=== PATIENT | female | born 1980 | race Caucasian/White ===

== ENCOUNTER 2019-06-06 20:04 | Emergency (ER) | payer BC ==
[2019-06-06 20:35] VITALS: BP 110/78
--- NOTE | 2019-06-06 21:09 | UC ---
FLU HPI - HPI Summary HPI Summary: 38-year-old female presenting with nasal congestion, productive cough, persistent fever, and decreased appetite 10 days. Patient states her fever has been as high as 103 but has not gone down below 100. CT is taking ibuprofen and Tylenol [id number]. Notes that the past several days she has developed increasing sinus pressure and "feels like her left sinus crackles when she moves." States the pressure in her head is "getting unbearable." States she now has also had to use her inhaler throughout the day for shortness of breath that she normally only uses while exercising. States she is trying to stay hydrated. Denies nausea and vomiting. Also taking otc decongestants and using flonase without any relief. - History of Current Complaint Chief Complaint: UCGeneralIllness Stated Complaint: SINUS CONGESTION Hx Obtained From: Patient Hx Last Menstrual Period: 06/02/19 Pain Intensity: 6 Pain Scale Used: 0-10 Numeric - Allergy/Home Medications Allergies/Adverse Reactions: Allergies Allergy/AdvReac Type Severity Reaction Status Date / Time No Known Allergies Allergy Verified 06/06/19 20:35 Home Medications: Home Medications Acetaminophen [Tylenol Extra Strength] 500 mg PO DAILY 06/06/19 [History Confirmed 06/06/19] Albuterol HFA INHALER* [Ventolin HFA Inhaler*] 2 puff INH Q6H PRN 06/06/19 [ History Confirmed 06/06/19] Amoxicillin/Clavulanate TAB* [Augmentin TAB 875*] 875 mg PO BID #13 tab [Rx] PMH/Surg Hx/FS Hx/Imm Hx Respiratory History: Asthma - exercise-induced - Surgical History Surgical History: Yes Surgery Procedure, Year, and Place: tonsils. triple hernia surgery. 2 knee surgeries - Family History Known Family History: Positive: Non-Contributory - Social History Alcohol Use: Rare Substance Use Type: None Smoking Status (MU): Never Smoked Tobacco Review of Systems All Other Systems Reviewed And Are Negative: Yes Constitutional: Positive: Fever, Chills, Fatigue ENT: Positive: Nasal Discharge, Sinus Congestion, Sinus Pain/Tenderness Respiratory: Positive: Shortness Of Breath, Cough - productive Cardiovascular: Positive: Negative Gastrointestinal: Positive: Negative Musculoskeletal: Positive: Negative Neurological/Mental Status: Positive: Headache Physical Exam - Summary Physical Exam Summary: Vital Signs Reviewed: Yes A+Ox3, no distress, ill-appearing Eyes: b/l inflamed conjunctiva ENT: Hearing grossly normal, TM x 2 clear, +nasal congestion, +PND, +maxillary and frontal sinus tenderness worse on left, moist, uvula midline, no exudate, + pharyngeal erythema Neck: Positive: Supple Respiratory: Positive: No respiratory distress, No accessory muscle use +faint diffuse wheezing Cardiovascular: RRR nl s1, s2 no m/r Musculoskeletal Exam: RAMÍREZ x 4 without difficulty Neurological: Positive: Alert Psychological: Positive: age appropriate behavior Skin: Positive: no rash, no ecchymosis Vital Signs: Initial Vital Signs Temp 100.2 F 06/06/19 20:31 Pulse 98 06/06/19 20:31 Resp 16 06/06/19 20:31 BP 110/78 06/06/19 20:31 Pulse Ox 100 06/06/19 20:31 Lab Results 06/06/19 Range/Units 21:23 Influenza B (Rapid) Positive H (Negative) Diagnostics - Radiology CXR Radiology Interpretation Completed By: ED Physician Summary of Radiographic Findings: no acute process Flu Course/Dx - Course Course Of Treatment: Discussed initial negative read of CXR and informed her that the final report is obtained in the morning and should would be notified with any abnormalities. Positive rapid flu B. I treated patient with augmentin for acute sinusitis likely secondary to influenza. She received the first dose here. I instructed to continue with symptomatic treatment, including flonase, decongestant, and otc antipyretics/analgesics. Instructed to follow up with pcp if not improving within 5-7 days. Instructed to go to ED with any new or worsening symptoms. Patient voiced understanding and agreed with treatment plan. - Differential Dx/Diagnosis Differential Diagnosis/HQI/PQRI: Bronchitis, Influenza, Pneumonia, Upper Respiratory Infection Provider Diagnosis: Influenza B, Acute sinusitis, Fever, Sinus headache Discharge ED - Sign-Out/Discharge Documenting (check all that apply): Patient Departure All imaging exams completed and their final reports reviewed: No - Discharge Plan Condition: Stable Disposition: HOME Prescriptions: Amoxicillin/Clavulanate TAB* [Augmentin TAB 875*] 875 mg PO BID #13 tab Patient Education Materials: Influenza (ED), Sinusitis (ED) Referrals: Sandra Rodriguez MD [Primary Care Provider] - If Needed Additional Instructions: As discussed, your radiograph was reviewed by the provider that treated you tonight. It will be read by a radiologist tomorrow morning. If there is a finding other than that discussed with you today, you will receive a call from a care provider. You tested positive for influenza B today. This is virus and does not respond to antibiotic treatment. Symptoms should resolve over time. Take Augmentin as prescribed for treatment of your sinus infection. You received the first dose tonight. Continue with sudafed and flonase. Use your inhaler as needed for shortness of breath and wheezing. You may also continue with tylenol and ibuprofen for fever and pain relief. Increase your fluid intake and get plenty of rest. Follow up with your primary care provider if symptoms do not resolve within 5-7 days. Go to the emergency room with any new or worsening symptoms, including fever higher than 103, difficulty breathing, and inability to keep fluids down. - Billing Disposition and Condition Condition: STABLE Disposition: Home
[2019-06-06 21:29] LABS: Influenza B Molecular POSITIVE (Negative)
[2019-06-06] MEDS ORDERED: Amoxicillin/Clavulanate TAB* 875 MG PO ONE (21:38)
--- NOTE | 2019-06-07 09:13 | UC ---
- Results/Orders Results/Orders: no change neg x ray Course/Dx - Diagnoses Provider Diagnoses: Influenza B, Acute sinusitis, Fever, Sinus headache Discharge ED - Sign-Out/Discharge Documenting (check all that apply): Patient Departure All imaging exams completed and their final reports reviewed: Yes - Discharge Plan Condition: Stable Disposition: HOME Prescriptions: Amoxicillin/Clavulanate TAB* [Augmentin TAB 875*] 875 mg PO BID #13 tab Patient Education Materials: Sinusitis (ED), Influenza (ED) Referrals: Sandra Rodriguez MD [Primary Care Provider] - If Needed Additional Instructions: As discussed, your radiograph was reviewed by the provider that treated you tonight. It will be read by a radiologist tomorrow morning. If there is a finding other than that discussed with you today, you will receive a call from a care provider. You tested positive for influenza B today. This is virus and does not respond to antibiotic treatment. Symptoms should resolve over time. Take Augmentin as prescribed for treatment of your sinus infection. You received the first dose tonight. Continue with sudafed and flonase. Use your inhaler as needed for shortness of breath and wheezing. You may also continue with tylenol and ibuprofen for fever and pain relief. Increase your fluid intake and get plenty of rest. Follow up with your primary care provider if symptoms do not resolve within 5-7 days. Go to the emergency room with any new or worsening symptoms, including fever higher than 103, difficulty breathing, and inability to keep fluids down. - Billing Disposition and Condition Condition: STABLE Disposition: Home
== END 2019-06-06 21:49 | disposition home or self-care (01) ==
LOC: UCCORT 20:04
DX: J10.1 Influenza due to other identified influenza virus with other respiratory manifestations (principal); R50.9 Fever, unspecified; R51 Headache; J01.90 Acute sinusitis, unspecified
CPT/HCPCS: 71046; 99202; A9270-GY; G0463